=== PATIENT | male | born 1940 | race Caucasian/White ===

== ENCOUNTER 2020-07-14 13:28 | Emergency (ER) | payer MEDICARE ==
[~2020-07-14] VITALS: Ht 172.7 cm; Wt 61.5 kg
[2020-07-14 13:33] VITALS: BP 133/44
--- NOTE | 2020-07-14 14:56 | NUR ---
FAMILY MEMBER FOR TRANSPORATION MARCELLA [phone]
[2020-07-14] MEDS ORDERED: AMOX1TAB11 PO (15:01)
== END 2020-07-14 15:20 | disposition home or self-care (01) ==
LOC: ER 13:29
DX: H65.192 Other acute nonsuppurative otitis media, left ear (principal); Z79.899 Other long term (current) drug therapy
CPT/HCPCS: 69209; 69210; 99284

== ENCOUNTER 2021-09-16 20:21 | Emergency (ER) | payer MEDICARE ==
--- NOTE | 2021-09-16 20:36 | NUR ---
Patient LWOBS said he was going to [facility].
== END 2021-09-16 20:57 | disposition left against medical advice (07) ==
LOC: ER 20:22
DX: R22.40 Localized swelling, mass and lump, unspecified lower limb (principal); Z53.21 Procedure and treatment not carried out due to patient leaving prior to being seen by health care provider